=== PATIENT | female | born 1980 | race Caucasian/White ===

== ENCOUNTER 2017-09-28 23:07 | Emergency (ER) | payer OTHER ==
[~2017-09-28] VITALS: Ht 162.6 cm; Wt 86.2 kg
[2017-09-29] MEDS ORDERED: PHENERGAN25 MG PO (07:03)
[2017-09-29] MEDS ORDERED: PEPCID40 MG PO (07:03)
== END 2017-09-29 07:37 | disposition home or self-care (01) ==
LOC: ER 23:07
DX: K52.9 Noninfective gastroenteritis and colitis, unspecified (principal)

== ENCOUNTER → 2017-11-18 | Emergency (ER) | payer OTHER ==
[~2017-11-18] VITALS: Ht 167.6 cm; Wt 86.2 kg
[~2017-11-18] MED LIST: PEPCID40 MG PO; PHENERGAN25 MG PO; PROTONIX40 MG
== END | disposition home or self-care (01) ==
LOC: ER 04:40
DX: K29.70 Gastritis, unspecified, without bleeding (principal); E87.6 Hypokalemia; N39.0 Urinary tract infection, site not specified